=== PATIENT | female | born 1965 | race Caucasian/White ===

== ENCOUNTER 2024-11-18 14:49 | Emergency (ER) | payer MEDICARE ==
[2024-11-18 14:55] VITALS: BP 167/87; TEMP 97.2
--- NOTE | 2024-11-18 15:01 | ERPHSYRPT ---
- History of Present Illness Time Seen by Provider: 11/18/24 15:01 Historian: patient, family Exam Limitations: no limitations Physician History: This is an overweight 59-year-old white female patient who arrives by private vehicle accompanied by her who travels to this area for patient's pain control medical coverage. Patient and her spouse live in [place] and have a cabin in this area. For the last couple of days patient has had tightness in her left chest and this pain radiated into her left arm. Patient has never been diagnosed with coronary artery disease. She has not had a fever. She has not had cough. She denies shortness of breath. Patient does have a history of migraine headaches, fibromyalgia and gastroesophageal reflux disease. Timing/Duration: day(s), intermittent Location: other (Left anterior chest) Chest Pain Radiation: arm (Left arm) Severity of Pain-Max: mild (To moderate) Severity of Pain-Current: mild Modifying Factors: Improves With: nothing Associated Symptoms: denies symptoms Prior Chest Pain/Cardiac Workup: no prior chest pain, no prior cardiac workup Nitro Today/Relief: no nitro taken today Aspirin Treatment Today: 81 mg x 4, provided by ED Allergies/Adverse Reactions: Antihistamines - Alkylamine Allergy (Verified 11/18/24 14:52) diphenhydramine [From Benadryl] Allergy (Verified 11/18/24 14:52) Penicillins Allergy (Verified 11/18/24 14:52) Sulfa (Sulfonamide Antibiotics) Allergy (Verified 11/18/24 14:52) Travel Risk - International Travel Have you traveled outside of the country in past 3 weeks: No - Emerging Infectious Disease Are you exhibiting symptoms associated with any current EIDs: No - Review of Systems Constitutional: No Symptoms Eyes: No Symptoms Ears, Nose, & Throat: No Symptoms Respiratory: No Symptoms Cardiac: Chest Pain Abdominal/Gastrointestinal: No Symptoms Genitourinary Symptoms: No Symptoms Musculoskeletal: No Symptoms Skin: No Symptoms Neurological: No Symptoms Psychological: No Symptoms Endocrine: No Symptoms Hematologic/Lymphatic: No Symptoms Immunological/Allergic: No Symptoms All Other Systems: Reviewed and Negative - Past Medical History Pertinent Past Medical History: Yes Neurological History: Migraines, Other GI Medical History: GERD Other Medical History: HYDROCEPHOLUS-NO SHUNT - Past Surgical History Past Surgical History: Yes Gastrointestinal: Cholecystectomy Female Surgical History: Hysterectomy - Nursing Vital Signs Nursing Vital Signs: Initial Vital Signs Temperature 97.2 F 11/18/24 14:54 Pulse Rate 67 11/18/24 14:54 Respiratory Rate 18 11/18/24 14:54 Blood Pressure 167/87 11/18/24 14:54 O2 Sat by Pulse Oximetry 96 11/18/24 14:54 Pain Scale Pain Intensity 5 - Physical Exam General Appearance: no apparent distress, alert, anxiety Eye Exam: PERRL/EOMI, eyes nml inspection Ears, Nose, Throat Exam: normal ENT inspection, moist mucous membranes Neck Exam: normal inspection, non-tender, supple, full range of motion Respiratory Exam: normal breath sounds, chest tenderness, lungs clear, airway intact, No respiratory distress Cardiovascular Exam: regular rate/rhythm, normal heart sounds, normal peripheral pulses Gastrointestinal/Abdomen Exam: soft, normal bowel sounds, No tenderness Pelvic Exam: not done Rectal Exam: not done Back Exam: normal inspection, normal range of motion, No CVA tenderness, No vertebral tenderness Extremity Exam: normal inspection, normal range of motion, pelvis stable Neurologic Exam: alert, oriented x 3, cooperative, vehicle window tinter II-XII nml as tested, normal mood/affect, nml cerebellar function, nml station & gait, sensation nml Skin Exam: normal color, warm, dry Lymphatic Exam: No adenopathy SpO2 Interpretation: normal SpO2: 96 O2 Delivery: Room Air - Course Nursing assessment & vital signs reviewed: Yes EKG Interpreted by Me: RATE ([id number]), Sinus Rhythm, NORMAL AXIS, NORMAL INTERVALS, NORMAL QRS, Other (No acute ischemia on today's twelve-lead EKG. QTc is 456.) Ordered Tests: Active Orders 24 hr Category Date Time Status EKG-ER Only STAT Care 11/18/24 15:13 Active IV Insertion STAT Care 11/18/24 15:13 Active Pulse Oximetry (ED) STAT Care 11/18/24 15:13 Active CHEST 1 VIEW (PORTABLE) Stat Exams 11/18/24 15:14 Taken CBC W DIFF Stat Lab 11/18/24 15:47 Completed CMP Stat Lab 11/18/24 15:47 Completed D-DIMER QUANTITATIVE Stat Lab 11/18/24 15:47 Completed PROTIME WITH INR Stat Lab 11/18/24 15:47 Completed TROPONIN Q4H Lab 11/18/24 15:47 Completed TROPONIN Q4H Lab 11/18/24 19:15 Ordered TROPONIN Q4H Lab 11/18/24 23:15 Ordered Medication Summary Discontinued Medications Generic Name Dose Route Start Last Admin Trade Name Rebelq PRN Reason Stop Dose Admin Aspirin 324 mg 11/18/24 15:13 11/18/24 15:28 Aspirin 81 Mg Tab.Chew PO 11/18/24 15:14 324 mg STAT ONE Administration Aspirin Confirm 11/18/24 15:27 Aspirin 81 Mg Tab.Chew Administered 11/18/24 15:28 Dose 324 mg .ROUTE .STK-MED ONE Lab/Rad Data: Laboratory Result Diagrams 11/18/24 15:47 11/18/24 15:47 Laboratory Results 11/18/24 11/18/24 11/18/24 Range/Units 15:47 15:47 15:47 WBC (3.98-10.04) x10^3/uL RBC (3.93-5.22) x10^6/uL Hgb (11.2-15.7) g/dL Hct (34.1-44.9) % MCV (79.4-94.8) fL MCH (25.6-32.2) pg MCHC (32.2-35.5) g/dL RDW (11.7-14.4) % Plt Count (182-369) x10^3/uL MPV (9.4-12.3) fL Gran % (34.0-71.1) % Immature Gran % (Auto) (0.001-0.429) % Nucleat RBC Rel Count (0.00-0.2) % Eos # (Auto) (0.04-0.36) x10^3/uL Immature Gran # (Auto) (0.001-0.031) x10^3u/L Absolute Lymphs (auto) (1.18-3.74) x10^3/uL Absolute Monos (auto) (0.24-0.86) x10^3/uL Absolute Nucleated RBC (0.00-0.012) x10^3u/L Lymphocytes % (19.3-51.7) % Monocytes % (4.7-12.5) % Eosinophils % (0.7-5.8) % Basophils % (0.1-1.2) % Absolute Granulocytes (1.56-6.13) x10^3/uL Basophils # (0.01-0.08) x10^3/uL PT 11.2 (9.4-12.5) SECONDS INR 1.03 (0.8-3.0) D-Dimer 0.54 H (0.0-0.50) mg/L Sodium 136 (135-145) mmol/L Potassium 4.3 (3.5-5.1) mmol/L Chloride 102 (98-107) mmol/L Carbon Dioxide 24 (22-30) mmol/L Anion Gap 14.0 (5-15) MEQ/L BUN 11 (7-17) mg/dL Creatinine 0.97 (0.52-1.04) mg/dL Estimated GFR 67.7 ML/MIN Glucose 109 H (74-106) mg/dL Calcium 9.8 (8.4-10.2) mg/dL Total Bilirubin 0.60 (0.2-1.3) mg/dL AST 27 (14-36) U/L ALT 19 (0-35) U/L Alkaline Phosphatase 92 (38-126) U/L Troponin I < 0.012 (0.000-0.033) ng/mL Serum Total Protein 6.9 (6.3-8.2) g/dL Albumin 4.5 (3.5-5.0) g/dL 11/18/24 Range/Units 15:47 WBC 8.4 (3.98-10.04) x10^3/uL RBC 4.42 (3.93-5.22) x10^6/uL Hgb 12.3 (11.2-15.7) g/dL Hct 37.6 (34.1-44.9) % MCV 85.1 (79.4-94.8) fL MCH 27.8 (25.6-32.2) pg MCHC 32.7 (32.2-35.5) g/dL RDW 13.1 (11.7-14.4) % Plt Count 344 (182-369) x10^3/uL MPV 10.4 (9.4-12.3) fL Gran % 68.2 (34.0-71.1) % Immature Gran % (Auto) 0.2 (0.001-0.429) % Nucleat RBC Rel Count 0.0 (0.00-0.2) % Eos # (Auto) 0.15 (0.04-0.36) x10^3/uL Immature Gran # (Auto) 0.02 (0.001-0.031) x10^3u/L Absolute Lymphs (auto) 1.69 (1.18-3.74) x10^3/uL Absolute Monos (auto) 0.71 (0.24-0.86) x10^3/uL Absolute Nucleated RBC 0.00 (0.00-0.012) x10^3u/L Lymphocytes % 20.1 (19.3-51.7) % Monocytes % 8.4 (4.7-12.5) % Eosinophils % 1.8 (0.7-5.8) % Basophils % 1.3 H (0.1-1.2) % Absolute Granulocytes 5.74 (1.56-6.13) x10^3/uL Basophils # 0.11 H (0.01-0.08) x10^3/uL PT (9.4-12.5) SECONDS INR (0.8-3.0) D-Dimer (0.0-0.50) mg/L Sodium (135-145) mmol/L Potassium (3.5-5.1) mmol/L Chloride (98-107) mmol/L Carbon Dioxide (22-30) mmol/L Anion Gap (5-15) MEQ/L BUN (7-17) mg/dL Creatinine (0.52-1.04) mg/dL Estimated GFR ML/MIN Glucose (74-106) mg/dL Calcium (8.4-10.2) mg/dL Total Bilirubin (0.2-1.3) mg/dL AST (14-36) U/L ALT (0-35) U/L Alkaline Phosphatase (38-126) U/L Troponin I (0.000-0.033) ng/mL Serum Total Protein (6.3-8.2) g/dL Albumin (3.5-5.0) g/dL - Progress Progress: improved, re-examined Air Movement: good Progress Note: 11/18/24 15:39 My medical decision making and the assignment of moderate complexity to this patient's medical issue today is based on review of the patient's past medical history, review the patient's medication list, reviewed patient drug allergy list, history present illness and physical findings on examination. The workup in this patient includes placement of an intravenous line, 4 baby aspirin chewable, CBC, CMP, magnesium level, D-dimer level, troponin level, chest x-ray. Differential diagnosis includes but is not limited to muscle skeletal pain, myocardial infarction, arrhythmia, electrolyte abnormalities, pulmonary embolus, pneumonia 11/18/24 17:31 I reviewed and interpreted the patient's laboratory data results. The D-dimer was slightly elevated at 0.54. Normal is less than 0.5. I had a long discussion with the patient and her spouse. I did tell her I thought the chance of her having a pulmonary embolus/blood clot was low but I could not be 100% certain unless the testing is performed. That test was discussed with them and that included the CT scan of the chest with contrast. We discussed the potential risk of IV contrast dye on the kidneys as well as the risk to her if she does allow performing the test and the patient has a blood clot. Patient is awake she is alert she is oriented and she understands her options and she understands that I am willing to perform/order that test. She and her both have decided not to undergo that testing. We discussed symptoms that she should look out for. She will sign refusal of test form Blood Culture(s) Obtained: No Antibiotics given: No Counseled pt/family regarding: lab results, diagnosis, rad results Medical Desision Making - Independent Historian Additional History obtained from: Spouse - Diagnostic Testing Diagnostic test were ordered, analyzed, and reviewed by me: Yes Radiological Interpretation: Interpreted by me, Teleradiologist Report - Risk of complications Minimal Risk: Minimal risk of morbidity - Departure Departure Disposition: Home Clinical Impression: Nonspecific chest pain Condition: Stable Critical Care Time: No Referrals: DOCTOR,NO FAMILY [Primary Care Provider] - Follow up/PCP as directed Additional Instructions: Call your medications as prescribed. Call your primary care provider tomorrow, 11/19/2024, to make arrangements for follow-up appointment for further evaluation and management.
[2024-11-18] MEDS ORDERED: BABY ASPIRIN 81 MG CHEW ONE (15:27)
[2024-11-18] MEDS: BABY ASPIRIN 81 MG CHEW PO ONE (15:28)
[2024-11-18 15:49] LABS: Absolute Neutrophil Ct (ANC) 5.74 x10^3/uL (1.56-6.13); BASOPHIL % 1.3 % (0.1-1.2); Basophil (Absolute #) 0.11 x10^3/uL (0.01-0.08); Eosinophil % 1.8 % (0.7-5.8); Eosinophil (Absolute #) 0.15 x10^3/uL (0.04-0.36); Hematocrit 37.6 % (34.1-44.9); Hemoglobin 12.3 g/dL (11.2-15.7); IMMATURE GRAN # 0.02 x10^3u/L (0.001-0.031); IMMATURE GRAN % 0.2 % (0.001-0.429); Lymphocyte (Absolute #) 1.69 x10^3/uL (1.18-3.74); Lymphocytes % 20.1 % (19.3-51.7); Mean Cell Volume 85.1 fL (79.4-94.8); Mean Corpuscular Hemoglobin 27.8 pg (25.6-32.2); Mean Corpuscular Hgb Concent. 32.7 g/dL (32.2-35.5); Mean Platelet Volume 10.4 fL (9.4-12.3); Monocyte (Absolute #) 0.71 x10^3/uL (0.24-0.86); Monocytes % 8.4 % (4.7-12.5); Neutrophil % 68.2 % (34.0-71.1); Platelet Count 344 x10^3/uL (182-369); Red Blood Count 4.42 x10^6/uL (3.93-5.22); Red Cell Distribution Width 13.1 % (11.7-14.4); White Blood Count 8.4 x10^3/uL (3.98-10.04)
[2024-11-18 16:06] VITALS: PULSE 62
[2024-11-18 16:07] LABS: ALBUMIN 4.5 g/dL (3.5-5.0); BILIRUBIN,TOTAL 0.6 mg/dL (0.2-1.3); Calcium 9.8 mg/dL (8.4-10.2); Creatinine 1 0.97 mg/dL (0.52-1.04); EST GLOMERULAR FILTRATION RATE 67.7 ML/MIN; Potassium 4.3 mmol/L (3.5-5.1); Total Protein 6.9 g/dL (6.3-8.2)
[2024-11-18 16:08] LABS: D-DIMER QUANTITATIVE 0.54 mg/L (0.0-0.50); INR 1.03 (0.8-3.0); PROTIME 11.2 SECONDS (9.4-12.5)
[2024-11-18 17:04] VITALS: RESP 7; O2SAT 96
--- NOTE | 2024-11-18 19:30 | XRAY ---
Indication: Left chest pain. Comparison: None Portable chest demonstrates normal heart and lungs with moderate size hiatal hernia. Bony thorax intact with osteopenia and mild degenerative changes.
== END 2024-11-18 17:51 | disposition home or self-care (01) ==
LOC: ED 14:49
DX: R07.9 Chest pain, unspecified (principal)
CPT/HCPCS: 36415; 71045; 80053; 84484; 85025; 85379; 85610; 93005; 94760; 99284; 99285; A9270-GY